=== PATIENT | female | born 1975 | race Two or more races ===

== ENCOUNTER 2020-10-13 01:06 | Emergency (ER) | payer MEDICAID, OTHER ==
[~2020-10-13] VITALS: Ht 165.1 cm; Wt 72.6 kg
[2020-10-13] MEDS ORDERED: cefTRIAXone W LIDOCAINE 1 GM IM IM ONE (03:15)
[2020-10-13 03:30] VITALS: BP 101/72
[2020-10-13] MEDS ORDERED: cefTRIAXone SOD 1,000 MG VL IM ONE (03:45)
== END 2020-10-13 03:55 | disposition home or self-care (01) ==
LOC: ER 01:06
DX: I88.9 Nonspecific lymphadenitis, unspecified (principal); K02.9 Dental caries, unspecified
CPT/HCPCS: 96372; 99283; J0696

== ENCOUNTER 2024-09-24 09:44 | Emergency (ER) | payer MEDICAID ==
[~2024-09-24] VITALS: Ht 165.1 cm; Wt 69.5 kg
[2024-09-24 10:31] VITALS: BP 101/64; PULSE 63; RESP 17; TEMP 98.4; O2SAT 99
--- NOTE | 2024-09-24 10:36 | ED.PDOC ---
Epistaxis- HPI HPI Comments A 48 YEAR OLD FEMALE PRESENTS TO THE ED WITH CHIEF COMPLAINT OF NOSE BLEED. PATIENT REPORTS THAT SHE HAS BEEN EXPERIENCING INTERMITTENT RIGHT SIDED NOSE BLEEDS FOR THE PAST 2 WEEKS. PATIENT RELAYS THAT SHE WENT TO URGENT CARE TODAY AND WAS ADVISED TO BE EVALUATED BY THE ED. PATIENT DENIES ANY NASAL CONGESTION, DIZZINESS, HEADACHE, N/V, NOSE PAIN, OR NASAL DISCHARGE. NO OTHER SYMPTOMS REPORTED AT THIS TIME OF CARE. Chief Complaint: Nose Bleed Time Seen by MD: 10:29 Primary Care Provider: ANSHUL Reviewed Notes: Nurses Notes, Medications, Allergies Allergies: Coded Allergies: NO KNOWN ALLERGIES (Unverified , 09/24/24) Information Source: Patient Mode of Arrival: Ambulatory Severity: Streaking, Bleeding Controlled Timing: Weeks Duration: Since onset, Intermittent, Minutes Prehospital treatment: None Location: Right naris Mechanism: Spontaneous onset Circumstances: Unknown Use of: None History of: None Last Tetanus: Unknown Nose: Normal Bleeding Status: No active bleeding Bleeding Amount: None Source: Right, Little's area, Unidentified Associated signs and symptoms: None Past Medical History PAST MEDICAL HISTORY: Denies Surgical History: Denies all surgeries SURGICAL GARMENT INSPECTOR History: No Pertinent SURGICAL GARMENT INSPECTOR History Social History Smoker: Non-Smoker Alcohol: Denies ETOH Use Drugs: Denies Drug Use Constitutional: denies: chills, diaphoresis, fatigue, fever, malaise, sweats, weakness, others EENTM: reports: nose bleeding; denies: blurred vision, double vision, ear bleeding, ear discharge, ear drainage, ear pain, ear ringing, eye pain, eye redness, hearing loss, mouth pain, mouth swelling, nasal discharge, nose congestion, nose pain, photophobia, tearing, throat pain, throat swelling, voice changes, others Respiratory: denies: cough, hemoptysis, orthopnea, SOB at rest, shortness of breath, SOB with excertion, stridor, wheezing, others Cardiovascular: denies: chest pain, dizzy spells, diaphoresis, Dyspnea on exertion, edema, irregular heart beat, left arm pain, lightheadedness, palpitations, PND, syncope, others Gastrointestinal: denies: abdomen distended, abdominal pain, blood streaked bowels, constipated, diarrhea, dysphagia, difficulty swallowing, hematemesis, melena, nausea, poor appetite, poor fluid intake, rectal bleeding, rectal pain, vomiting, others Genitourinary: denies: abnormal vagina bleeding, burning, dyspareunia, dysuria, flank pain, frequency, hematuria, incontinence, pain, , vagina discharge, urgency, others Neurological: denies: dizziness, fainting, headache, left sided numbness, left sided weakness, numbness, paresthesia, pre-existing deficit, right sided numbness, right sided weakness, seizure, speech problems, tingling, tremors, weakness, others Musculoskeletal: denies: back pain, gout, joint pain, joint swelling, muscle pain, muscle stiffness, neck pain, others Integumetry: denies: bruises, change in color, change in hair/nails, dryness, laceration, lesions, lumps, rash, wounds, others Allergic/Immunocompromised: denies: Difficulty Healing, Frequent Infections, H jen, Itching, others Hematologic/Lymphatic: denies: anemia, blood clots, easy bleeding, easy bruising, swollen glands, others Endocrine: denies: excessive hunger, excessive sweating, excessive thirst, excessive urination, flushing, intolerance to cold, intolerance to heat, unexplained weight gain, unexplained weight loss, others Psychiatric: denies: anxiety, bipolar disorder, depression, hopeless, panic disorder, schizophrenia, sleepless, suicidal, others All Other Systems: Reviewed and Negative Physical Exam General Appearance: No Apparent Distress, Normal HEENT: Normal ENT Inspection, PERRL/EOMI, Other (MILD DRY BLOOD INSIDE RIGHT NOSTRIL, NO ACTIVELY NOSE BLEEDING AND BLOOD CLOTS. +ANTERIOR NOSE BLEEDING. ) Neck: Full Range of Motion, Non-Tender, Normal, Normal Inspection Respiratory: Chest Non-Tender, Lungs Clear, No Accessory Muscle Use, No Respiratory Distress, Normal Breath Sounds Cardiovascular: No Edema, No JVD, No Murmur, No Gallop, Normal Peripheral Pulses, Regular Rate/Rhythm Breast Exam: Deferred Gastrointestinal: No Organomegaly, Non Tender, No Pulsatile Mass, Normal Bowel Sounds, Soft Genitalia: Deferred Pelvic: Deferred Rectal: Deferred Extremities: No calf tenderness, Normal capillary refill, Normal inspection, Normal range of motion, Non-tender, No pedal edema Musculoskeletal : Apperance: Normal Neurologic: Alert, dish stacker II-XII nml as Tested, No Motor Deficits, Normal Affect, Normal Mood, No Sensory Deficits Cerebellar Function: Normal Reflexes: Normal Skin: Dry, Normal Color, Warm Peripheral Pulses: 2+ carotid (R), 2+ carotid (L) Lymphatic: No Adenopathy Was a procedure done? Was a procedure done?: No Differential Diagnosis (NSB) Differential Diagnosis: Anterior Nasal Bleed, Posterior Nasal Bleed, Coagulopathy X-Ray, Labs, Meds, VS Vital Signs Date Time Temp Pulse Resp B/P (MAP) Pulse Ox O2 Delivery O2 Flow Rate FiO2 09/24/24 10:31 63 17 99 Room Air 09/24/24 10:31 98.4 63 17 101/64 (76) 99 98.4 09/24/24 09:50 98.4 63 17 101/64 (76) 99 98.4 Current Medications Medications (Trade) Dose Ordered Sig/Marilia Route Start Time Stop Time Status Last Admin Oxymetazoline HCl (Afrin) 1 spr ONCE ONCE EACHNOSTRI 09/24/24 10:45 09/24/24 10:46 DC 09/24/24 10:45 X-Ray, Labs, Meds, VS Comment EXTERNAL MEDICAL RECORDS REVIEWED: [NONE] INDEPENDENT HISTORIANS: [NONE] SOCIAL DETERMINANTS OF HEALTH: [NONE] LABS ORDERED: NONE REVIEWED AND INTERPRETED RESULTS: NONE IMAGING ORDERED: NONE TREATMENTS ORDERED: AFRIN 1 SPRAY IN RIGHT NOSTRIL, NO NOSE BLEEDING. PROCEDURES PERFORMED: NONE CRITICAL CARE TIME: NONE I HAVE DISCUSSED THE PATIENT WITH THE ATTENDING PHYSICIAN DR. HERNANDES AND HE AGREES WITH THE PATIENT'S PLAN OF CARE AND DISPOSITION. BASED ON HISTORY OF PRESENT ILLNESS, AND PHYSICAL EXAM, PATIENT WILL BE DISCHARGED HOME. DISCUSSED PLAN FOR DISCHARGE HOME. SHARED DECISION MAKING: DISCUSSED WITH PATIENT THAT THEIR WORKUP WAS NORMAL. PATIENT INSTRUCTED TO FOLLOW UP WITH PRIMARY CARE PROVIDER IN 1-2 DAYS FOR RE- EVALUATION OF SYMPTOMS. PATIENT VERBALIZES UNDERSTANDING TO RETURN TO ED FOR NEW OR WORSENING SYMPTOMS OR IF FOLLOW UP WITH PCP CANNOT BE OBTAINED. PATIENT FEELS COMFORTABLE GOING HOME AT THIS TIME. ALL QUESTIONS ADDRESSED AT TIME OF DISCHARGE. Time of 1ST Reevaluation: 11:15 Reevaluation 1ST: Improved Patient Education/Counseling: Diagnosis, Treatment, Need For Follow Up Family Education/Counseling: Diagnosis, Treatment, No Family Present Medical Screening: No EMC Exist At This Time Departure 1 Departure Time of Disposition: 11:18 Impression: Primary Impression: Anterior epistaxis Disposition: 01 HOME / SELF CARE / HOMELESS Condition: Stable Additional Instructions: FOLLOW-UP WITH PCP IN 1 TO 2 DAYS. TAKE MEDICATIONS PRESCRIBED. RETURN TO ED FOR ANY NEW OR WORSENING SYMPTOMS. Discharged With: Self Critical Care Note Critical Care Time?: No Stability Stability form required: No Heart Score Heart Score: Heart Score Response (Comments) Value History N/A 0 EKG N/A 0 Age N/A 0 Risk Factors N/A 0 Troponin N/A 0 Total 0 I personally scribed for JUHI JALLOH ([email or web address]) on 09/24/24 at 10:36. Electronically submitted by Baron Anna ([email or web address]). JUHI JALLOH September 24, 2024 10:36
[2024-09-24] MEDS: OXYMETAZOLINE HCL 0.05 % NASAL SPRAY 15ML EACHNOSTRI ONE (10:45)
== END 2024-09-24 10:47 | disposition home or self-care (01) ==
LOC: ER 09:44
DX: R04.0 Epistaxis (principal)